=== PATIENT | male | born 1965 | race Caucasian/White ===

== ENCOUNTER 2018-05-04 07:16 | Emergency (ER) | payer MEDICARE, OTHER ==
[2018-05-04] MEDS ORDERED: LACTATED RINGERS 1,000 ML IVS ONE (07:27)
--- NOTE | 2018-05-04 07:27 | ED.PDOC ---
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 Timing/Duration: intermittent, resolved prior to arrival Severity: moderate Improving Factors: nothing Worsening Factors: nothing Associated Symptoms: other - flank pain Allergies/Adverse Reactions: Allergies Penicillins Allergy (Verified 05/04/18 07:27) Review of Systems - Review of Systems Constitutional: States: no symptoms reported EENTM: States: no symptoms reported Respiratory: States: no symptoms reported Cardiology: States: no symptoms reported Gastrointestinal/Abdominal: States: no symptoms reported Genitourinary: States: see HPI, hematuria Neurological: States: no symptoms reported Endocrine: States: no symptoms reported Hematologic/Lymphatic: States: no symptoms reported Past Medical History (General) - Patient Medical History Hx Other PMH: Yes - fibromayalgia Surgical History: other - cardiac cath Family Medical History - Family History Father Hx Family Stroke: Yes - mom Hx Family Cancer: Yes - esophageal Physical Exam - Physical Exam General Appearance: Alert, Comfortable, No apparent distress Eye Exam: bilateral normal Ears, Nose, Throat: hearing grossly normal, normal ENT inspection Neck: non-tender, full range of motion, supple, normal inspection Respiratory: chest non-tender, lungs clear, normal breath sounds, no respiratory distress Cardiovascular/Chest: normal peripheral pulses, regular rate, rhythm, no murmur Peripheral Pulses: radial,right: 2+, radial,left: 2+ Gastrointestinal/Abdominal: normal bowel sounds, non tender, soft Rectal Exam: normal rectal tone, heme negative stool, other - prostate not enlarged Back Exam: normal inspection, no vertebral tenderness, CVA tenderness (L) Extremity: normal inspection, no pedal edema, no calf tenderness Neurologic: alert, normal mood/affect Skin Exam: normal color, warm/dry Lymphatic: no adenopathy Progress - Progress Progress: 05/04/18 07:52 05/04/18 07:27 CARDIAC PANEL,ER Stat HEPATIC FUNCTION PANEL Stat Lactated Ringers [Lr] 1,000 ml IVS ONCE 05/04/18 07:41 URINALYSIS Stat 05/04/18 07:42 Abdoment/Pelvis w/o Contrast [CT] Stat FECAL OCCULT BLOOD Stat Vital Signs - 8 hr 05/04/18 07:20 Temperature 97.8 F Pulse Rate [ 97 H left brachial] Respiratory 20 Rate Blood Pressure 175/107 [left brachial] O2 Sat by Pulse 98 Oximetry 05/04/18 09:[address] 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 - Results/Orders Results/Orders: Laboratory Results - last 24 hr 05/04/18 05/04/18 05/04/18 07:30 07:30 07:54 WBC 7.7 RBC 5.68 Hgb 17.5 Hct 52.4 H MCV 92.3 MCH 30.9 MCHC 33.5 RDW 13.4 Plt Count 277 MPV 7.8 Absolute Neuts (auto) 4.00 Absolute Lymphs (auto) 2.70 Absolute Monos (auto) 0.80 Absolute Eos (auto) 0.10 Absolute Basos (auto) 0.10 Neutrophils % 51.7 Lymphocytes % 35.3 Monocytes % 10.6 H Eosinophils % 1.7 Basophils % 0.7 PT 10.1 INR 1.01 PTT (SP) 28.5 Sodium 139 Potassium 3.6 Chloride 103 Carbon Dioxide 27 Anion Gap 12.6 BUN 8 Creatinine 1.02 BUN/Creatinine Ratio 7.8 L Random Glucose 104 Serum Osmolality 276.2 Calcium 9.1 Magnesium 2.1 Total Bilirubin 0.6 Direct Bilirubin 0.1 Indirect Bilirubin 0.5 AST 25 ALT 20 Alkaline Phosphatase 49 Creatine Kinase 117 CK-MB (CK-2) 2.0 CK-MB (CK-2) % Not Reportable Troponin I < 0.02 Serum Total Protein 7.6 Albumin 4.5 Urine Color Yellow Urine Appearance Clear Urine pH 6.5 Ur Specific [place] <= 1.005 Urine Protein Negative Urine Glucose (UA) Negative Urine Ketones Negative Urine Blood Moderate H Urine Nitrite Negative Urine Bilirubin Negative Urine Urobilinogen 0.2 Ur Leukocyte Esterase Negative Urine RBC 0 Urine WBC 0 Ur Epithelial Cells 0 Urine Bacteria 0 Stool Occult Blood Negative - EKG/XRAY/CT CT Ordered: Yes - abd/P-15 mm left distal ureteral stone with bilateral non obstructing kidne Departure - Departure Clinical Impression: Calculus of distal left ureter, Bilateral nephrolithiasis Hematuria Qualifiers: Hematuria type: gross Qualified Code(s): R31.0 - Gross hematuria Time of Disposition: 09:53 Disposition: Discharge to Home or Self Care Condition: Fair Departure Forms: ED Discharge - Pt. Copy, Patient Portal Self Enrollment Instructions: DI for Kidney Stones Additional Instructions: Continue with current medications;Call Dr. Rafael Larry-Urologist for appointment - [facility] [address] [place] [address].[id number] ,[place] [id number] # [phone] ASHOK
[2018-05-04 07:35] VITALS: TEMP 97.8
[2018-05-04] MEDS ORDERED: KETOROLAC TROMETHAMINE INJ 30 MG/ML VIAL IV ONE (07:48)
[2018-05-04] MEDS ORDERED: TAMSULOSIN 0.4 MG CAP PO ONE (07:48)
[2018-05-04] MEDS ORDERED: MORPHINE SULFATE INJ 10 MG/ML VIAL IV ONE (07:48)
[2018-05-04] MEDS ORDERED: traMADol HCL 50 MG TAB PO ONE (07:54)
--- NOTE | 2018-05-04 08:09 | CT ---
EXAM DESCRIPTION: Abdomen t/Pelvis w/o Contrast CLINICAL HISTORY: hematuria COMPARISON: None. TECHNIQUE: CT of the abdomen and pelvis was performed without contrast. Multiple axial images and multiplanar reconstructions were generated. This exam was performed according to our departmental dose-optimization program, which includes automated exposure control, adjustment of the mA and/or kV according to patient size and/or use of iterative reconstruction technique. FINDINGS: Lung bases: The visualized lung bases are clear. Solid organs: There is an obstructing 15 mm calculus in the distal left ureter with moderate hydroureteronephrosis above this level. Additional punctate 2 mm nonobstructing left renal calculus. At least 4 nonobstructing right renal calculi measuring up to 2 mm each. The liver, gallbladder, spleen, pancreas, and adrenal glands are unremarkable on this noncontrast exam. Gastrointestinal: Small hiatal hernia. No bowel obstruction. Scattered colonic diverticulosis without CT evidence for diverticulitis. The appendix is normal. No free fluid or free air. Vascular: The abdominal aorta is normal in caliber. Lymph nodes: No pathologically enlarged lymph nodes are present by CT size criteria. Musculoskeletal and soft tissues: No destructive osseous lesions are present. Urinary bladder and pelvic organs: No additional bladder calculi. The prostate is mildly enlarged. IMPRESSION: 1. Obstructing 15 mm calculus in the distal left ureter with moderate hydroureteronephrosis. Urology consultation recommended. 2. Bilateral nonobstructing nephrolithiasis. 3. Colonic diverticulosis. 4. Prostatic enlargement. 5. Other findings as above. Electronically signed by: Chencho Hernandez MD 05/04/2018 8:08 AM CDT
[2018-05-04 08:31] VITALS: O2SAT 99
[2018-05-04 10:09] VITALS: BP 168/90
== END 2018-05-04 10:09 | disposition home or self-care (01) ==
LOC: ER 07:16
DX: N13.2 Hydronephrosis with renal and ureteral calculous obstruction (principal); R31.0 Gross hematuria; M79.7 Fibromyalgia; Z88.0 Allergy status to penicillin
CPT/HCPCS: 36415; 74176; 80048; 80076; 81001; 82270; 82550; 82553; 84484; 85025; 85610; 85730; J1885; J7120

== ENCOUNTER 2018-05-07 03:08 | Emergency (ER) | payer MEDICARE, OTHER ==
[2018-05-07] MEDS ORDERED: HYDROcodone 10MG/APAP 325MG 1 EA TAB PO ONE (03:28)
[2018-05-07] MEDS ORDERED: diazePAM 2 MG TAB PO ONE (03:28)
[2018-05-07] MEDS ORDERED: KETOROLAC TROMETHAMINE INJ 30 MG/ML VIAL IM ONE (03:28)
[2018-05-07 03:30] VITALS: TEMP 97.7
[2018-05-07] MEDS ORDERED: ONDANSETRON INJ 4 MG/2 ML VIAL IV ONE (03:30)
[2018-05-07] MEDS ORDERED: ONDANSETRON INJ 4 MG/2 ML VIAL ONE (03:31)
--- NOTE | 2018-05-07 03:32 | ED.PDOC ---
History of Present Illness - General Chief Complaint: Problem Stated Complaint: lower back pain, post surgery Time Seen by Provider: 05/07/18 03:23 Source: patient Exam Limitations: no limitations - History of Present Illness Initial Comments: the patient's a 52-year-old male presenting to the emergency room secondary to left low back pain that started several hours ago. Yesterday the patient had a 15 mm kidney stone removed from the left ureter. He was actually not having much in the way of pain until just a few hours ago. He was given tramadol for his pain. Tramadol has not done much for him. Timing/Duration: 4-6 hours Severity: severe Improving Factors: nothing Worsening Factors: nothing Associated Symptoms: denies symptoms Allergies/Adverse Reactions: Allergies Penicillins Allergy (Verified 05/04/18 07:27) Home Medications: Ambulatory Orders Diazepam [Valium] 2 mg PO Q6HR PRN #10 tab 05/07/18 Tamsulosin HCl [Flomax] 0.4 mg PO DAILY #14 cap 05/07/18 Review of Systems - Review of Systems Constitutional: States: no symptoms reported EENTM: States: no symptoms reported Respiratory: States: no symptoms reported Cardiology: States: no symptoms reported Gastrointestinal/Abdominal: States: no symptoms reported Genitourinary: States: no symptoms reported Musculoskeletal: States: back pain Skin: States: no symptoms reported Neurological: States: no symptoms reported Endocrine: States: no symptoms reported All other Systems: No Change from Baseline Past Medical History (General) - Patient Medical History Hx Stroke: No Hx Congestive Heart Failure: No Hx Diabetes: No Surgical History: other - Social History Hx Alcohol Use: Yes Family Medical History - Family History Father Family History: Unknown Hx Family Stroke: Yes - mom Hx Family Cancer: Yes - esophageal Physical Exam - Physical Exam General Appearance: Alert, Comfortable, No apparent distress Eye Exam: bilateral normal Ears, Nose, Throat: hearing grossly normal Neck: full range of motion, supple Respiratory: no respiratory distress, no accessory muscle use Cardiovascular/Chest: normal peripheral pulses, no edema, other - regular rate Peripheral Pulses: radial,right: 2+, radial,left: 2+ Gastrointestinal/Abdominal: non tender, soft Rectal Exam: deferred Back Exam: no CVA tenderness, no vertebral tenderness Extremity: non-tender, no pedal edema, normal capillary refill 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 This is no doubt pain caused by ureteral spasm. The patient has responded well to a dose of hydrocodone, Valium and Toradol. He was also given a dose of Flomax. He'll be written for Valium and Flomax as an outpatient. He needs to keep follow-up with urology. He needs to keep himself well hydrated. He can take 3 Aleve 2 times a day for the next 3 days with food as well. ER warnings were given. Keep routine follow-up with primary care doctor otherwise. - EKG/XRAY/CT CT Ordered: No CT Interpretation Call Back: No Departure - Departure Clinical Impression: Ureteritis Disposition: Discharge to Home or Self Care Condition: Fair Departure Forms: ED Discharge - Pt. Copy, Patient Portal Self Enrollment Instructions: DI for Kidney Stones Diet: regular diet Activity: increase activity as tolerated Prescriptions: Diazepam [Valium] 2 mg PO Q6HR PRN #10 tab PRN Reason: Muscle Spasms Tamsulosin HCl [Flomax] 0.4 mg PO DAILY #14 cap Home Medications: Ambulatory Orders Diazepam [Valium] 2 mg PO Q6HR PRN #10 tab 05/07/18 Tamsulosin HCl [Flomax] 0.4 mg PO DAILY #14 cap 05/07/18 Additional Instructions: the patient is a 52-year-old male presenting to the emergency room secondary to pain in his left low back at the site of a kidney stone extraction that was performed earlier today. This is no doubt pain caused by ureteral spasm. The patient has responded well to a dose of hydrocodone, Valium and Toradol. He was also given a dose of Flomax. He'll be written for Valium and Flomax as an outpatient. He needs to keep follow-up with urology. He needs to keep himself well hydrated. He can take 3 Aleve 2 times a day for the next 3 days with food as well. ER warnings were given. Keep routine follow-up with primary care doctor otherwise.
[2018-05-07] MEDS ORDERED: TAMSULOSIN 0.4 MG CAP PO ONE (04:04)
[2018-05-07 04:17] VITALS: BP 150/85; O2SAT 98
== END 2018-05-07 04:15 | disposition home or self-care (01) ==
LOC: ER 03:08
DX: N20.1 Calculus of ureter (principal); M54.5 Low back pain; Z98.890 Other specified postprocedural states; Z88.0 Allergy status to penicillin
CPT/HCPCS: J1885; J2405

== ENCOUNTER → 2018-12-02 | Outpatient (CLI) | payer MEDICARE, OTHER ==
--- NOTE | 2018-12-03 13:07 | RAD ---
Procedure: XR ABDOMEN 1 VIEW (KUB) Exam Date: 12/02/2018 Ordering Provider: JENNIFER FISHER Clinical Indication: N20.0 Comparison: 05/04/2018 CT abdomen pelvis Findings: Punctate calcific densities projecting over the expected region of both kidneys. Calcifications in both sides of the pelvis are likely phleboliths and are similar in appearance compared to prior. Nonobstructive bowel gas pattern. There is no acute osseous abnormality. Impression: 1. Bilateral nephrolithiasis. Electronically signed by: Aashish Boggs MD 12/03/2018 1:05 PM CDT
== END ==
LOC: RAD 13:49
PROVIDERS: ATTEND Urology
DX: N20.0 Calculus of kidney (principal)

== ENCOUNTER → 2019-03-02 | Outpatient (CLI) | payer MEDICARE, OTHER | LOC: LAB.O 16:30 | PROVIDERS: ATTEND Nurse Practitioner Family | DX: E29.1 Testicular hypofunction (principal); R71.0 Precipitous drop in hematocrit ==

== ENCOUNTER → 2019-05-18 | Outpatient (CLI) | payer MEDICARE, OTHER | LOC: LAB.O 09:14 | PROVIDERS: ATTEND Family Medicine | DX: R71.8 Other abnormality of red blood cells (principal) ==